=== PATIENT | female | born 2005 ===

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

== ENCOUNTER → 2023-04-04 18:14 | Outpatient (CLI) | payer OTHER, SELFPAY ==
--- NOTE | 2023-04-04 | DI.RAD_ITS ---
Exam(s) XR LUMBAR SPINE AP, LAT EXAM: XR LUMBAR SPINE AP, LAT CLINICAL HISTORY: Low back pain, unspecified. TECHNIQUE: 2D digital imaging was performed of the lumbar spine. Three images were obtained. AP, l ateral, and L5-S1 spot views were obtained. COMPARISON: No exams were available for comparison FINDINGS: BONES: No fracture or destructive lesion. Vertebral bodies are unremarkable. No facet hypertrophy karolina ntified. DISKS: Intervertebral disc spaces are maintained. ALIGNMENT: Lumbar spinal alignment is within normal limits. No spondylolysis or spondylolisthesis. SOFT TISSUE: Normal. IMPRESSION: Unremarkable radiographs of the lumbar spine. DATA REPOSITORY: RADIATION DOSE DELIVERED:
== END ==
PROVIDERS: Visit Provider Physician Assistant Medical
DX: M54.50 Low back pain, unspecified (principal)
CPT/HCPCS: 72100

== ENCOUNTER 2023-12-21 21:24 | Emergency (ER) | payer OTHER, SELFPAY ==
[2023-12-21 21:24] VITALS: BP 124/75; PULSE 117; RESP 12; TEMP 36.9; O2SAT 96
--- NOTE | 2023-12-21 21:30 | DI.RAD_ITS ---
Exam(s) XR ANKLE RT COMPLETE EXAM: XR ANKLE RT COMPLETE CLINICAL HISTORY: R ankle pain, volleyball injury. TECHNIQUE: 2D digital imaging was performed. COMPARISON: No exams were available for comparison FINDINGS: 3 views No evidence of acute fracture or widening the ankle mortise. Talar dome unremarkable. No soft tissu e swelling. There is a corticated calcification subjacent to the lateral malleolus which is probably accessory os sicle or related to remote trauma. Base of the 5th metatarsal is intact. No degenerative changes. No tarsal coalition evident. IMPRESSION: No acute osseous findings in the ankle. DATA REPOSITORY: RADIATION DOSE DELIVERED:
--- NOTE | 2023-12-21 21:34 | ED.GENADUL_ITS ---
Discharge Plan Disposition Patient Disposition: Home Condition: Stable Discharge Details Clinical Impression: Sprain of right ankle Primary Care Provider: Nita,Local ED Provider: Gadiel Hoskins Home Meds and New Rx's Prescriptions: No Action ibuprofen [Advil] 200 mg tablet 600 mg PO ONCE Discharge Instructions Instructions: Ankle Sprain ED Additional Instructions: You were seen in the emergency department for the sprain of your right ankle. There is no acute fracture seen on x-ray, please rest, ice, compress and elevate the ankle, ice to complete numbness and then let rewarm. Use crutches as needed. Please use therapeutic dosing of Tylenol (acetamenophen) & Advil (ibuprofen) in an alternating fashion as follows: Take 1000mg of Tylenol every 6 hours without missing doses- that is 4 times per day. Valier in between the Tylenol dosings, take 400-600mg of Advil also on a 6 hour schedule, that is also 4 times per day. The daily maximum dosing of Tylenol is 4000mg, and the daily maximum dosing of Advil is 2400mg. This is safe to do for weeks. Please note that some common cold medications & prescription pain medications may contain acetamenophen and you need to read OTC drug labels and factor that in to maximum daily dosings. Please follow-up with orthopaedics for persistent pain past 2 weeks, please return for emergent concerns to the ED. Referrals: [facility] [Provider Group] Discharge Data Discharge Date/Time-TO BE ENTERED AT DEPARTURE: 12/21/23 22:19 HPI General Date/Time Provider Initiated Documentation: 12/21/23 21:34 . HPI Narrative: 18 year-old female presents to ED today by POV/ambulating with crutches with her boyfriend with a chief complaint of rolled her R ankle in volleyball game, then played remainder of game on it, with onset an hour ago. Quality described as stiffness, pain in ankle, no radiation to numbness distally, fibular head tenderness, has it wrapped in coban brace. Severity is described as moderate. Palliating factors include wrapped with some relief. Provoking factors include nothing specific. Patient not anticoagulated. Related Data Home Medications ?Medication ?Instructions ?Recorded ?Confirmed ibuprofen 200 mg tablet (Advil) 600 mg PO ONCE 12/21/23 12/21/23 Allergies Allergy/AdvReac Type Severity Reaction Status Date / Time No Known Allergies Allergy Unverified 12/21/23 21:28 General Stated Complaint: Orthopedic NEIL: 4 Review of Systems All systems reviewed & are unremarkable except as noted in HPI and below Exam Narrative Exam Narrative: GENERAL APPEARANCE: Well-nourished, non-toxic, awake and alert, atraumatic, no acute distress. SKIN: Warm, pink, dry, intact, without rashes/lesions/ulcerations. HEAD: Normocephalic, atraumatic, normal hair distribution for gender/age. EYES: Normal conjunctiva, no exudates on lids/lashes. ENT: Nares patent, no circumoral cyanosis, no facial swelling NECK: Supple, trachea midline, painless cervical ROM. LUNGS/CHEST: Non-labored respirations, normal A/P diameter, symmetrical expansion, no chest wall deformity HEART (CV/PV): No peripheral edema, no JVD. ABDOMEN: Soft, non-distended, no guarding. MSK: Normal ROM, no swelling/deformity to bilateral UEs or LEs, moving all extremities without weakness, no cyanosis, spine midline without tenderness, normal curvature, tenderness diffusely to right ankle most focal in the lateral malleolus, circulation sensation intact distal, no fibular head tenderness, gross deformity or severe swelling NEURO: Mental Status AAOx4 - alert to person, place, time, events No facial droop, no forehead involvement. Motor: No focal weakness - strength 5/5 in bilateral UEs and LEs, proximal and distal, symmetric. Sensory: sensation intact to light touch globally. Gait NT PSYCH: euthymic, cooperative, pleasant, appropriate speech Course Vital Signs Vital signs: Vital Signs Temperature 36.9 C 12/21/23 21:24 Pulse 117 H 12/21/23 21:24 Respiratory Rate 12 12/21/23 21:24 Blood Pressure 124/75 12/21/23 21:24 Pulse Oximetry 96 12/21/23 21:24 Temperature 36.9 C 12/21/23 21:24 Temperature Source Oral 12/21/23 21:24 Pulse 117 H 12/21/23 21:24 Respiratory Rate 12 12/21/23 21:24 Respiratory Effort Normal, Non-Labored 12/21/23 21:27 Blood Pressure 124/75 12/21/23 21:24 Blood Pressure Position Sitting 10/11/24 21:24 Pulse Oximetry 96 12/21/23 21:24 Oxygen Delivery Method Room Air 12/21/23 21:24 Oxygen Flow Rate 0 12/21/23 21:24 Pain Level 6 12/21/23 21:24 Medical Decision Making This dictation utilizes [id number] dictation software and may contain unedited grammatical errors. 18 year-old female presents to ED today by POV/ambulating with crutches with her boyfriend with a chief complaint of rolled her R ankle in volleyball game, then played remainder of game on it, with onset an hour ago. Quality described as stiffness, pain in ankle, no radiation to numbness distally, fibular head tenderness, has it wrapped in coban brace. Severity is described as moderate. Palliating factors include wrapped with some relief. Provoking factors include nothing specific. Patients' medical history: Negative, otherwise healthy. Family and social history: Collegiate level volleyball. Pertinent exam findings / vital signs include mild tenderness diffusely to the right ankle, circulation sensation intact distal, no proximal trauma to the calf. Differential / pathologies of concern include sprain, fracture unlikely as the patient played the remainder of the game, possible ligamentous injury. Diagnostic studies of: -XR R ankle. Interventions of: -Provided short ankle boot for pain relief as needed, recommend RICE therapy and therapeutic dose of Tylenol and ibuprofen. ED Course/Assessment/Plan: 18-year-old female presents with right ankle pain after rolling her ankle playing volleyball game, she did finish the remainder of the game but is not having limited range of motion to pain, I am mildly suspicious for ligamentous injury with the possible sesamoid bone versus avulsion fracture of her distal right fibula, and placing her in a short brace until we can get radiology over read tomorrow as well as possible orthopedic evaluation for failure to improve, I stressed RICE therapy and therapeutic dosing Tylenol and ibuprofen, return for emergent concerns. Findings not consistent with fracture or neurovascular compromise. Disposition of sprain of right ankle. Patient verbalized understanding of the plan and return to ED criteria and engaged in shared decision making. Medical Records Medical records reviewed: Yes I reviewed the patient's medical records. Imaging Data Radiologic Study: Attestation: I personally reviewed and interpreted this imaging study as follows: Imaging: X-Ray My impression: Small avulsion fx vs sesamoid bone- well corticated abnormality at the distal fibula Radiologist's impression: Exam: XR Right Ankle Exam date and time: 12/21/2023 9:58 PM Age: 18 years old Clinical indication: Pain and injury or trauma; Other: Volleyball injury; Blunt trauma; Ankle; Right; Additional info: R ankle pain, volleyball injury TECHNIQUE: Imaging protocol: Radiologic exam of the right ankle. Views: 3 or more views. COMPARISON: No relevant prior studies available. FINDINGS: Bones/joints: No acute fracture or dislocation. 7 mm ossicle subjacent to the lateral malleolus appears well corticated with rounded margins consistent with chronic finding, suspect sequela of old inversion injury. Ankle mortise is preserved. Soft tissues: Normal. IMPRESSION: No acute fracture or dislocation. Quality:SDOH Health Related Social Needs: No Data to Display PFSH All Active Problems (Updated 12/21/23 @ 21:59 by KENNEY Bell) Sprain of right ankle (Acute) Social History Smoking/Tobacco Use Status: Never Smoking risk assessment performed?: Yes Alcohol Intake: never Drug use: Never Substance use type: does not use and unknown Housing: apartment Do you feel safe at home: Yes Do you feel safe in your relationship?: Yes Additional Social history: Brought in by friends from a democrat for ETOH poisoning.
--- NOTE | 2023-12-21 23:31 | DI.VRAD_ITS ---
PROCEDURE INFORMATION: Exam: XR Right Ankle Exam date and time: 12/21/2023 9:58 PM Age: 18 years old Clinical indication: Pain and injury or trauma; Other: Volleyball injury; Blunt trauma; Ankle; Right; Additional info: R ankle pain, volleyball injury TECHNIQUE: Imaging protocol: Radiologic exam of the right ankle. Views: 3 or more views. COMPARISON: No relevant prior studies available. FINDINGS: Bones/joints: No acute fracture or dislocation. 7 mm ossicle subjacent to the lateral malleolus appears well corticated with rounded margins consistent with chronic finding, suspect sequela of old inversion injury. Ankle mortise is preserved. Soft tissues: Normal. IMPRESSION: No acute fracture or dislocation. Dictated and Authenticated by: Harry Shafer MD. Ordering:GARHAM Ramesh MD
--- NOTE | 2023-12-22 17:20 | NUR.NOTE ---
Access chart to get the discharge diagnosis for [facility] billing. Nursing Note:
== END 2023-12-21 22:19 | disposition home or self-care (01) ==
PROVIDERS: Emergency Provider Physician Assistant
DX: S93.401A Sprain of unspecified ligament of right ankle, initial encounter (principal); Y99.8 Other external cause status; Y93.68 Activity, volleyball (beach) (court)
CPT/HCPCS: 29515; 99283; 73610